=== PATIENT | female | born 1945 | race Caucasian/White ===

== ENCOUNTER 2022-03-14 06:20 | Observation (INO) ==
[2022-03-14 07:04] LABS: ABS Eosinophils 0.2 10^3/ul (0-0.6); ABS Lymphocytes 1.3 10^3/ul (1.0-4.8); ABS Monocytes 0.7 10^3/ul (0-0.8); ABS Neutrophils 2.7 10^3/ul (1.5-7.7); Eosinophil % 3.7 %; Hematocrit 38 % (35-47); Hemoglobin 12.8 g/dL (12.0-16.0); Lymphocyte % 26.4 %; Mean Corpuscular HGB Conc 34 g/dL (31-36); Mean Corpuscular Hemoglobin 28 pg (27-31); Mean Corpuscular Volume 83 fL (80-97); Mean Platelet Volume 8.1 fL (7.4-10.4); Platelet Count 277 10^3/uL (150-450); Red Blood Count 4.52 10^6 /uL (3.70-4.87); Red Cell Distribution Width 14 % (10-15); White Blood Count 4.8 10^3/uL (3.5-10.8)
[2022-03-14 07:22] LABS: INR 0.97 (0.88-1.18)
[2022-03-14 08:08] LABS: Albumin/Globulin Ratio 1.9 (1-3); Calcium 9.4 mg/dL (8.6-10.3); Creatinine, Serum 0.74 mg/dL (0.51-0.95); Globulin 2.1 g/dL (2-4); Potassium 3.8 mmol/L (3.5-5.0); Total Bilirubin 0.3 mg/dL (0.2-1.0); Total Protein 6.1 g/dL (6.4-8.9); eGFR CKD-EPI 84.8 (>60)
[2022-03-14 08:54] LABS: High Sensitivity Troponin 1 Hr < 3 pg/mL (<15)
[2022-03-14] MEDS ORDERED: Enoxaparin 40 MG/0.4 ML SYR SUBCUT ONE (10:15)
[2022-03-14] MEDS: Isosorbide Mononit ER 30mg TAB PO SCH (10:32)
[2022-03-14] MEDS ORDERED: Polyethylene Glycol 3350 17 GM PACKET PO PRN (10:56)
[2022-03-15] MEDS ORDERED: NS 0.9% 1000 ml BAG 1,000 ML IV SCH ×2 (06:00→17:30)
[2022-03-15 06:55] LABS: ABS Eosinophils 0.2 10^3/ul (0-0.6); ABS Lymphocytes 1.3 10^3/ul (1.0-4.8); ABS Monocytes 0.7 10^3/ul (0-0.8); ABS Neutrophils 3.1 10^3/ul (1.5-7.7); Eosinophil % 3.2 %; Hematocrit 33 % (35-47); Hemoglobin 11.1 g/dL (12.0-16.0); Lymphocyte % 25.1 %; Mean Corpuscular HGB Conc 33 g/dL (31-36); Mean Corpuscular Hemoglobin 28 pg (27-31); Mean Corpuscular Volume 84 fL (80-97); Mean Platelet Volume 9.4 fL (7.4-10.4); Platelet Count 238 10^3/uL (150-450); Red Blood Count 3.99 10^6 /uL (3.70-4.87); Red Cell Distribution Width 14 % (10-15); White Blood Count 5.4 10^3/uL (3.5-10.8)
[2022-03-15 07:17] LABS: Creatinine, Serum 0.67 mg/dL (0.51-0.95); Potassium 4.1 mmol/L (3.5-5.0); eGFR CKD-EPI 91.7 (>60)
[2022-03-15] MEDS ORDERED: Aspirin EC 81 mg TAB.EC (enteric coated) PO SCH (09:00)
[2022-03-15] MEDS: Isosorbide Mononit ER 30mg TAB PO SCH (09:16)
[2022-03-15] MEDS ORDERED: Famotidine IV 10 MG/ML 2 ml VIAL (20 mg) IV SLOW PU ONE (09:46)
[2022-03-15] MEDS ORDERED: Heparin 2 UNITS/ML 1000 mls 2,000 ML IV ONE (16:17)
[2022-03-15] MEDS ORDERED: Heparin 1,000 UNIT/ML 10 ml (10,000 UNITS) CATHLAB/DIALYSIS ONE ×2 (16:17→16:41)
[2022-03-15] MEDS ORDERED: VERAPAMIL 2.5 MG/ML 2 ML VIAL ** 5 mg/2 ml ONE (16:17)
[2022-03-15] MEDS ORDERED: fentaNYL 100 mcg/2 ml 50 MCG/ML VIAL ONE (16:17)
[2022-03-15] MEDS ORDERED: Midazolam 5 mg/5 ml VIAL 1 mg/ml 5 ml VIAL (5 mg) ONE (16:17)
[2022-03-15] MEDS ORDERED: Iohexol 350 (CONTRAST) 100 ML PAK IV ONE ×2 (16:18→16:53)
[2022-03-15] MEDS ORDERED: nitroGLYCERIN DRIP 25,000 MCG/250 ML BTL ONE (16:18)
[2022-03-15] MEDS ORDERED: Lidocaine 1% MPF 5 ML VIAL ONE (16:18)
[2022-03-15] MEDS ORDERED: Phenylephrine 40 mcg/mL 10mL (400mcg) SYRINGE ONE (16:50)
[2022-03-16] MEDS: Isosorbide Mononit ER 30mg TAB PO SCH (10:48)
[2022-03-16 11:37] VITALS: BP 115/58
== END 2022-03-16 11:05 | disposition home or self-care (01) ==
LOC: EDHOLD 06:20 → ED 06:20 → SUATTDRO 09:31 → EDHOLD 10:41 → MEDTELE 11:07
PROVIDERS: ADMIT Internal Medicine; ATTEND Family Medicine